=== PATIENT | male | born 1955 | race Two or more races ===

== ENCOUNTER 2024-06-01 08:39 | Outpatient (AMB) | payer BC, SELFPAY ==
--- NOTE | 2024-06-01 09:05 | PD.ORTHCLVIS ---
Vital signs 06/01/24 09:09 Height 1.7 m Height Method Stated Weight 76.374 kg Weight Measurement Method Standing Scale BMI 26.4 BP 135/83 H Blood Pressure Source Automatic Cuff Blood Pressure Location Right Upper Arm Position Sitting Respiration 18 Pulse 75 Pulse Source Monitor Temp 97.3 F Temp Source Temporal Artery Scan Pulse Oximetry (%) 98 Oxygen Delivery Method Room Air Med/Allergies Allergies & Medications Allergies No Known Drug Allergies Allergy (Verified 06/01/24 09:10) Medication Reconciliation carvedilol 25 mg tablet 25 mg PO BID 01/16/24 [History Confirmed 06/01/24] semaglutide 1 mg/dose (4 mg/3 mL) subcutaneous pen injector (Ozempic) 1 mg subcut QWEEK 01/16/24 [History Confirmed 06/01/24] acetaminophen 500 mg tablet (Acetaminophen Extra Strength) 1,000 mg (2 x 500 mg) PO Q6H PRN pain #90 tabs 01/19/24 [Rx Confirmed 06/01/24] aspirin 81 mg tablet,delayed release 81 mg PO BID #60 tabs 01/19/24 [Rx Confirmed 06/01/24] doxycycline hyclate 100 mg tablet 100 mg PO BID #14 tabs 01/19/24 [Rx Confirmed 06/01/24] meloxicam 7.5 mg tablet 7.5 mg PO QDAY #30 tabs 01/19/24 [Rx Confirmed 06/01/24] sennosides 8.6 mg-docusate sodium 50 mg tablet (Senna-S) 1 tab-cap PO QDAY #30 tabs 01/19/24 [Rx Confirmed 06/01/24] oxycodone 5 mg tablet 5 mg PO Q6H PRN pain #40 tabs 01/27/24 [Rx Confirmed 06/01/24] cyclobenzaprine 5 mg tablet 5 mg PO QHS PRN muscle spasm #30 tabs 02/03/24 [Rx Confirmed 06/01/24] psyllium husk 3.4 gram/5.4 gram oral powder (Metamucil) 1 tbsp PO BID #660 grams 02/03/24 [Rx Confirmed 06/01/24] oxycodone 5 mg tablet 5 mg PO Q6H PRN pain #28 tabs 02/13/24 [Rx Confirmed 06/01/24] cyclobenzaprine 5 mg tablet 5 mg PO QHS PRN muscle spasm #60 tabs 03/02/24 [Rx Confirmed 06/01/24] gabapentin 300 mg capsule 300 mg PO .qhs #30 caps 03/02/24 [Rx Confirmed 06/01/24] Subjective Visit Visit for: follow up visit and knee Immunization / Flu Flu Vaccine in the Last 12 Months: Yes Flu Vaccine Exclusion Criteria: Already Received History of Present Illness Chief complaint: FOLLOW UP Rupesh is 5 months status post left total knee replacement. He is doing well. He Has minimal pain. Personal History Occupation: [employer] PMH: none Pain Pain level (0-10): 3 Pain duration: COMES AND GOES Pain location: inside (medial), outside (lateral), anterior and posterior Pain quality: dull and aching Pain timing: increases with activity Associated signs & symptoms: none Ambulatory data Ambulatory device: none Treatments Improvement with previous injections: No Improvement with PT: No Improvement with NSAIDS: n/a Review of Systems Review of Systems: All systems negative unless otherwise noted in HPI. Exam Exam Patient is in no acute distress and is cooperative with the examination today. Patient has a normal mood and affect. Breathing is nonlabored. In no respiratory distress. Bilateral extremities were evaluated and demonstrates sensation intact to light touch. Palpable pedal pulses are present. No significant edema is present. Right knee incision is clean dry intact. Range of motion 0 to 105 degrees. Left knee incision is clean dry and intact X-rays demonstrate a cementless right total knee replacement. He has a cementless left total knee replacement in good alignment position Assessment and Plan Problem List (1) Arthritis of knee, left: Status: Acute Plan: Patient is 5 months out from a staged bilateral total knee replacements. He would like to return to work. There will be no restrictions. The patient is doing well we will see him in his 1 year and restrict (2) History of total right knee replacement: Status: Acute Advanced Care Planning Discussion Advance care planning discussed with:: patient Office Procedures GNS Level of Care Nursing/Assessment Patient Status: Established Patient Nursing Assessment/Reassesment: Medication Reconciliation, Update PMH in EMR and Vital Signs Coordination of Care: Complex Care and Chronic Disease 1-5, Education Complex Pt/Fam, Consent,records obtained, informed consent, Results/Orders obtained and Staff clarify orders Established Patient Charge Established Patient Point Assignment: 95 Established Patient Point Charge: EP Level 3 (80-115) Past Medical History Past Medical History Have you ever been diagnosed with any of the following: Neurological Problems Seizures: No Cardiology Problems Congestive Heart Failure: No Hypertension: Yes Varicose Veins: Yes Respiratory Problems Chronic Obstructive Pulmonary Disease (COPD): No Smoking: No Smoking Cessation Counseling: No Smoking Exposure: No Tobacco Use: No Clubbing: No Exposure to Respiratory Irritants: No Intubation: No Stomache/Intestinal Problems Hepatitis: No Genital/Urinary Problems Renal Disease: No Endocrine Problems Diabetes Mellitus Type 1: No Diabetes Mellitus Type 2: Yes Other Problems Hospitalization: No Shingles: Yes Blood Transfusions: No Anesthesia Reactions: No Chicken Pox: Yes Measles: Yes Cancer: No Surgical History Total Knee Replacement: No
[2024-06-01 09:09] VITALS: BP 135/83; PULSE 75; RESP 18; TEMP 36.3; O2SAT 98; BMI 26.4
== END 2024-06-01 09:26 | disposition home or self-care (01) ==
LOC: HODSRG 08:39
PROVIDERS: PCP Family Medicine; Referring Provider Family Medicine; Supervising Provider Orthopaedic Surgery Adult Reconstructive Orthopaedic Surgery; Visit Provider Orthopaedic Surgery Adult Reconstructive Orthopaedic Surgery
DX: M17.12 Unilateral primary osteoarthritis, left knee (principal); Z96.651 Presence of right artificial knee joint
CPT/HCPCS: 99213; G0463